=== PATIENT | male | born 1990 | race Caucasian/White ===

== ENCOUNTER 2017-01-17 21:53 | Emergency (ER) | payer OTHER ==
--- NOTE | 2017-01-17 22:47 | EDM.PDOC ---
ED HPI GENERAL MEDICAL PROBLEM - General Chief Complaint: Upper Extremity Injury/Pain Stated Complaint: BUG BITE TRAVELING UP RIGHT ARM Time Seen by Provider: 01/17/17 22:32 Source of Information: Reports: Patient, RN Notes Reviewed, Significant Other ( Girlfriend) History Limitations: Reports: No Limitations - History of Present Illness INITIAL COMMENTS - FREE TEXT/NARRATIVE: The patient states that he noticed what appeared to be an insect bite to the volar aspect of his distal right forearm this past 01/15/2017. He noticed increased swelling to the area yesterday. He applied an ice pack, which initially decreased the swelling, but today the swelling increased, and appears to be spreading up his right forearm. No recent fever. No prior similar symptoms following insect bites. The patient does not have a PCP. - Related Data Allergies Allergy/AdvReac Type Severity Reaction Status Date / Time No Known Allergies Allergy Verified 01/17/17 22:06 Home Meds: Home Meds . 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) ED ROS GENERAL - Review of Systems Review Of Systems: See Below Constitutional: Reports: No Symptoms HEENT: Reports: No Symptoms Respiratory: Reports: No Symptoms Cardiovascular: Reports: No Symptoms Endocrine: Reports: No Symptoms GI/Abdominal: Reports: No Symptoms : Reports: No Symptoms Musculoskeletal: Reports: No Symptoms Skin: Reports: No Symptoms Neurological: Reports: No Symptoms Psychiatric: Reports: No Symptoms Hematologic/Lymphatic: Reports: No Symptoms Immunologic: Reports: No Symptoms ED EXAM, SKIN/RASH Exam: See Below Exam Limited By: No Limitations General Appearance: Alert, WD/WN, No Apparent Distress Extremities: Other (Mild erythema and swelling noted to the volar aspect of the distal right forearm, with mild erythema extending proximally, but not above the cubital fossa. Minimal associated calor. Neurovascular status of the right upper extremity is intact.) Course - Re-Assessments/Exams Free Text/Narrative Re-Assessment/Exam: 01/17/17 22:42 The patient appears to be suffering from a local inflammatory reaction to insect bite, not an infection. The treatment is an antihistamine and ice packs, and he should expect resolution within 12 days. Departure - Departure Time of Disposition: 22:43 Disposition: Home, Self-Care 01 Condition: Good Clinical Impression: Insect bite of right forearm with local reaction - Discharge Information Instructions: Insect Bite, [id number] Referrals: PCP,None [Primary Care Provider] - Yanelis Alexandre PA-C [Physician Circulation Manager] - Forms: ED Department Discharge Additional Instructions: You were seen in the emergency room for redness surrounding an insect bite on your forearm, traveling up your arm. You are suffering from a local inflammatory reaction to an insect bite. It is not an infection. Take an [id number] antihistamine as directed on the label. Apply an ice pack to the red areas on your forearm for 10-15 minutes, 4-5 times a day. You should expect resolution of your symptoms within 12 days. If your symptoms fail to improve, please follow-up with Yanelis Alexandre in the clinic. If any other problems, please do not hesitate to return to the ER.
== END 2017-01-17 22:56 | disposition home or self-care (01) ==
LOC: JD.ED 21:53
DX: S50.861A Insect bite (nonvenomous) of right forearm, initial encounter (principal); W57.XXXA Bitten or stung by nonvenomous insect and other nonvenomous arthropods, initial encounter
CPT/HCPCS: 99282

== ENCOUNTER 2019-04-30 19:50 | Emergency (ER) | payer OTHER ==
--- NOTE | 2019-04-30 20:16 | EDM.PDOC ---
ED HPI GENERAL MEDICAL PROBLEM - General Chief Complaint: Upper Extremity Injury/Pain Stated Complaint: SHOULDER INJURY Time Seen by Provider: 04/30/19 20:08 Source of Information: Reports: Patient History Limitations: Reports: No Limitations - History of Present Illness INITIAL COMMENTS - FREE TEXT/NARRATIVE: 29 y/o M with R shoulder injury. Was crushed between two players and had immediate pain in R shoulder and clavicle area. Pain is moderate, worse with arm movements. No head injury or neck or chest pain. No numbness or weakness in R arm. Hasn't taken anything for pain. Denies additional injury. Right Shoulder Pain Score (Numeric/FACES): 4 - Related Data Allergies Allergy/AdvReac Type Severity Reaction Status Date / Time No Known Allergies Allergy Verified 04/30/19 20:02 Home Meds: Home Meds . [No Known Home Meds] 01/17/17 [History] Past Medical History - Past Health History Medical/Surgical History: Denies Medical/Surgical History Musculoskeletal History: Reports: Other (See Below) Other Musculoskeletal History: dislocated L shoulder - Infectious Disease History Infectious Disease History: Reports: Chicken Pox - Past Surgical History HEENT Surgical History: Reports: Detached Retina Social & Family History - Family History Family Medical History: Noncontributory - Tobacco Use Smoking Status *Q: Never Smoker Second Hand Smoke Exposure: No - Caffeine Use Caffeine Use: Reports: Coffee - Recreational Drug Use Recreational Drug Use: No - Living Situation & Occupation Living situation: Reports: Single, with Family 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) Review of Systems - Review of Systems Review Of Systems: See Below Constitutional: Denies: Fever Respiratory: Reports: No Symptoms Cardiovascular: Reports: No Symptoms GI/Abdominal: Reports: No Symptoms Musculoskeletal: Reports: Arm Pain Skin: Reports: No Symptoms Neurological: Reports: No Symptoms ED EXAM, GENERAL - Physical Exam Exam: See Below Exam Limited By: No Limitations General Appearance: Alert, WD/WN, No Apparent Distress Eye Exam: Bilateral Eye: Normal Inspection Ears: Normal External Exam Nose: Normal Inspection, No Blood Throat/Mouth: Normal Inspection, Normal Voice Head: Atraumatic, Normocephalic Neck: Normal Inspection, Supple, Non-Tender, Full Range of Motion Respiratory/Chest: No Respiratory Distress, Lungs Clear, Normal Breath Sounds, Chest Non-Tender Cardiovascular: Normal Peripheral Pulses, Regular Rate, Rhythm Peripheral Pulses: 2+: Radial (R) Extremities: Normal Inspection, Normal Range of Motion, Other (RUE: +mid clavicular TTP, no deformity, skin intact, no tenting. Minimal anterior shoulder TTP. Holding shoulder in flexion, Can abduct to 90 degrees, ROM otherwise somewhat limited by pain. No shoulder crepitus. No posterior or lateral shoulder TTP. No humerus/elbow/forearm TTP. Distal motor/sensation/ perfusion intact. ) Neurological: Alert, Oriented, Normal Cognition Psychiatric: Normal Affect, Normal Mood Skin Exam: Warm, Dry, Intact Course - Vital Signs Last Recorded V/S: Last Vital Signs Temp 36.8 C 04/30/19 19:59 Pulse 94 04/30/19 19:59 Resp 18 04/30/19 19:59 BP 126/79 04/30/19 19:59 Pulse Ox 100 04/30/19 19:59 - Orders/Labs/Meds Orders: Active Orders 24 hr Category Date Time Status Clavicle Rt [CR] Stat Exams 04/30/19 20:11 Ordered Shoulder Comp Rt [CR] Stat Exams 04/30/19 20:11 Taken - Re-Assessments/Exams Free Text/Narrative Re-Assessment/Exam: 04/30/19 20:53 On repeat exam, he is able to fully range the shoulder. He continues to have some pain in the medial third of the clavicle and a subjective sensation of popping there. XR of L shoulder shows normal alignment of the shoulder and clavicle and no apparent fracture. Will place a sling, advised ice/rest, ortho f /u in 1 week. Departure - Departure Time of Disposition: 20:55 Disposition: Home, Self-Care 01 Clinical Impression: Right shoulder strain Qualifiers: Encounter type: initial encounter Qualified Code(s): S46.911A - Strain of unspecified muscle, fascia and tendon at shoulder and upper arm level, right arm , initial encounter - Discharge Information Referrals: PCP,None [Primary Care Provider] - Forms: ED Department Discharge Additional Instructions: 1. Wear sling for comfort and shoulder rest for at least a few days, and for a week if you continue to have pain 2. Rest. Avoid heavy lifting or other strenuous activity. Ice area of pain on and off for the next day or two. Take ibuprofen and/or acetaminophen according to bottle directions as needed for pain. 3. Follow up with orthopedics in about a week. 4. Return to the ED as needed for any new concerning symptoms. - My Orders Last 24 Hours: My Active Orders 04/30/19 20:11 Clavicle Rt [CR] Stat Shoulder Comp Rt [CR] Stat - Assessment/Plan Last 24 Hours: My Active Orders 04/30/19 20:11 Clavicle Rt [CR] Stat Shoulder Comp Rt [CR] Stat
--- NOTE | 2019-05-01 07:25 | CR ---
Right shoulder: Three views of the right shoulder were obtained. Comparison: No prior shoulder study. Glenohumeral and acromioclavicular joints appear within normal limits. No fracture, dislocation or other bony abnormality is seen. Impression: 1. No abnormality is identified on three-view right shoulder study. Diagnostic code #1
== END 2019-04-30 21:15 | disposition home or self-care (01) ==
LOC: JD.ED 19:50
DX: S46.911A Strain of unspecified muscle, fascia and tendon at shoulder and upper arm level, right arm, initial encounter (principal); W51.XXXA Accidental striking against or bumped into by another person, initial encounter
CPT/HCPCS: 73030-26-RT; 73030-RT; 99283-25